=== PATIENT | female | born 1990 | race Caucasian/White ===

== ENCOUNTER 2017-05-25 07:59 | Inpatient (IN) | payer BC ==
[2017-05-25 09:57] LABS: ABS Basophils 0.1 10^3/ul (0-0.2); ABS Eosinophils 0.1 10^3/ul (0-0.6); ABS Lymphocytes 2.3 10^3/ul (1.0-4.8); ABS Monocytes 0.7 10^3/ul (0-0.8); ABS Neutrophils 7.9 10^3/ul (1.5-7.7); ABS Nucleated RBC 0 10^3/ul; Eosinophil % 0.8 % (0-6); Hematocrit 37 % (35-47); Hemoglobin 12.6 g/dl (12.0-16.0); Lymphocyte % 20.9 % (25-47); Mean Corpuscular HGB Conc 34 g/dl (31-36); Mean Corpuscular Hemoglobin 32 pg (27-31); Mean Corpuscular Volume 94 fL (80-97); Mean Platelet Volume 10 um3 (7.4-10.4); Nucleated Red Blood Cells % 0; Platelet Count 213 10^3/ul (150-450); Red Blood Count 3.99 10^6/ul (4.0-5.4); Red Cell Distribution Width 14 % (10.5-15); White Blood Count 11.1 10^3/ul (3.5-10.8)
[2017-05-25] MEDS ORDERED: Oxytocin in LR* 20 UNITS/1,000 ML BAG IVPB SCH ×2 (10:00→23:45)
[2017-05-25] MEDS ORDERED: OBEPIDURAL* 250 ML EPIDURAL ONE (16:49)
[2017-05-25] MEDS ORDERED: Sodium Citrate/Citric Acid* 15 ML UDC PO PRN (18:39)
[2017-05-25] MEDS ORDERED: EPHEDrine (Pressors)* 50 MG/ML VIAL IV PUSH PRN ×2 (18:39)
[2017-05-25] MEDS ORDERED: Phenylephrine IV* 40 MCG/ML 10 ML SYRINGE IV PUSH PRN ×2 (18:39)
[2017-05-25] MEDS ORDERED: Famotidine TAB* 20 MG PO PRN (18:39)
[2017-05-25] MEDS ORDERED: OBEPIDURAL* 250 ML EPIDURAL SCH (19:00)
[2017-05-25] MEDS ORDERED: Dibucaine 1% 28.35 GM TUBE PR PRN (23:24)
[2017-05-25] MEDS ORDERED: Witch Hazel PAD* JAR TOPICAL PRN (23:24)
[2017-05-25] MEDS ORDERED: Glycerin ADULT SUPP PR PRN (23:24)
[2017-05-26] MEDS: Docusate CAP* 100 MG PO SCH ×3 (08:09→21:09)
[2017-05-26] MEDS: Acetaminophen TAB* 325 MG PO PRN (08:09)
[2017-05-26] MEDS ORDERED: Simethicone TAB* 80 MG TAB.CHEW PO SCH (08:30)
[2017-05-26 08:32] LABS: ABS Basophils 0.1 10^3/ul (0-0.2); ABS Eosinophils 0.1 10^3/ul (0-0.6); ABS Lymphocytes 2.8 10^3/ul (1.0-4.8); ABS Monocytes 1.4 10^3/ul (0-0.8); ABS Neutrophils 12.6 10^3/ul (1.5-7.7); ABS Nucleated RBC 0 10^3/ul; Eosinophil % 0.3 % (0-6); Hematocrit 35 % (35-47); Hemoglobin 11.6 g/dl (12.0-16.0); Lymphocyte % 16.6 % (25-47); Mean Corpuscular HGB Conc 33 g/dl (31-36); Mean Corpuscular Hemoglobin 31 pg (27-31); Mean Corpuscular Volume 94 fL (80-97); Mean Platelet Volume 9 um3 (7.4-10.4); Nucleated Red Blood Cells % 0; Platelet Count 194 10^3/ul (150-450); Red Blood Count 3.71 10^6/ul (4.0-5.4); Red Cell Distribution Width 13 % (10.5-15)
[2017-05-26] MEDS ORDERED: Ferrous Gluconate TAB* 324 MG TAB PO SCH (09:00)
[2017-05-27] MEDS: Acetaminophen TAB* 325 MG PO PRN (06:12)
[2017-05-27 07:55] VITALS: BP 113/73
[2017-05-27] MEDS: Docusate CAP* 100 MG PO SCH (09:37)
== END 2017-05-27 11:24 | disposition home or self-care (01) | DRG 560 ==
LOC: MCHOBOUT 07:59 → MCHOB 09:02
PROVIDERS: ADMIT Obstetrics & Gynecology; ATTEND Obstetrics & Gynecology
PROC: 10907ZC Drainage of Amniotic Fluid, Therapeutic from Products of Conception, Via Natural or Artificial Opening (ICD-10-PCS; principal; 2017-05-25)
PROC: 4A1HX4Z Monitoring of Products of Conception, Cardiac Electrical Activity, External Approach (ICD-10-PCS; 2017-05-25)
PROC: 10D07Z6 Extraction of Products of Conception, Vacuum, Via Natural or Artificial Opening (ICD-10-PCS; 2017-05-25)
PROC: 0UQMXZZ Repair Vulva, External Approach (ICD-10-PCS; 2017-05-25)
DX: O48.0 Post-term pregnancy (principal); O69.81X0 Labor and delivery complicated by cord around neck, without compression, not applicable or unspecified; Z3A.40 40 weeks gestation of pregnancy; Z37.0 Single live birth; Z88.8 Allergy status to other drugs, medicaments and biological substances; O71.82 Other specified trauma to perineum and vulva
CPT/HCPCS: 36415; 85025; 86850; 86900; 86901; A9270-GY

== ENCOUNTER 2019-04-21 18:01 | Emergency (ER) | payer BC ==
[2019-04-21 18:42] VITALS: BP 112/59
[2019-04-21] MEDS ORDERED: Tetan/Diph/Pertus SYR(Tdap)* 0.5 ML SYR(BOOSTRIX) use SYR contains LATEX IM ONE (19:17)
--- NOTE | 2019-04-21 19:38 | UC ---
Laceration HPI - HPI Summary HPI Summary: 29 y/o female presents to the urgent care c/o cutting her Rt pinky finger w/ a glass while washing dishes about 1.5 hrs ago. Pain at touch is 4/10 and bleeding is controlled w/ pressure. She can move her pinky finger w/o any difficulty. Pt is unsure when last tetanus shot was. Pt denies fever, numbness or tingling sensation over the RT hand or pinky finger, SOB, chest pain, abdominal pain, N/V/D. or Hx of previous injury in that finger. - History Of Current Complaint Chief Complaint: JULIUSkin Stated Complaint: RT HAND-PINKY LACERATION Time Seen by Provider: 04/21/19 19:35 Hx Obtained From: Patient Hx Last Menstrual Period: 03/20/19 Laceration Location: Finger - Rt pinky laceration Mechanism Of Injury: Sharp Trauma Onset/Duration: Lasting Hours Pain Intensity: 4 Pain Scale Used: 0-10 Numeric Aggravating Factors: Movement, Other: - touch Related History: Dominant Hand Right - Allergies/Home Medications Allergies/Adverse Reactions: Allergies Allergy/AdvReac Type Severity Reaction Status Date / Time ibuprofen Allergy Intermediate Bleeding Verified 04/21/19 18:35 Home Medications: Home Medications Acetaminophen [Tylenol Extra Strength] 1,500 mg PO ONCE 04/21/19 [History Confirmed 04/21/19] PMH/Surg Hx/FS Hx/Imm Hx Previously Healthy: Yes Other GI/ History: chronz diease - Surgical History Surgical History: Yes Surgery Procedure, Year, and Place: tonsilectomy at age 7 - Family History Known Family History: Positive: Hypertension, Other - no FH eye disorders Negative: Cardiac Disease, Diabetes - Social History Occupation: Employed Full-time Lives: With Family Alcohol Use: Rare Substance Use Type: None Smoking Status (MU): Never Smoked Tobacco - Immunization History Most Recent Influenza Vaccination: never Most Recent Tetanus Shot: unk Most Recent Pneumonia Vaccination: never Review of Systems All Other Systems Reviewed And Are Negative: Yes Constitutional: Positive: Negative Skin: Positive: Other - laceration of Rt pinky finger w/ a glass Eyes: Positive: Negative ENT: Positive: Negative Respiratory: Positive: Negative Cardiovascular: Positive: Negative Gastrointestinal: Positive: Negative Genitourinary: Positive: Negative Motor: Positive: Negative Neurovascular: Positive: Negative Musculoskeletal: Positive: Other: - RT pinky finger s/p laceration Neurological: Positive: Negative Psychological: Positive: Negative Is Patient Immunocompromised?: No Physical Exam - Summary Physical Exam Summary: Vital Signs Reviewed: Yes General: well developed, well nourished female sitting in the examining table w/ o any apparent distress Eye Exam: Normal Eyes: Positive: Conjunctiva Clear - PERRLA, EOMI, fundi grossly normal ENT: Positive: Normal ENT inspection, Hearing grossly normal, Pharynx normal, TMs normal Neck: Positive: Supple, Nontender, No Lymphadenopathy Respiratory: Positive: Chest non-tender, Lungs clear, Normal breath sounds, No respiratory distress Cardiovascular: Positive: RRR, No Murmur, Pulses Normal, Brisk Capillary Refill Abdomen Description: Positive: Nontender, No Organomegaly, Soft. Negative: CVA Tenderness (R), CVA Tenderness (L) Bowel Sounds: Positive: Present Musculoskeletal: Positive: Strength Intact, ROM Intact, No Edema Neurological: Positive: Alert, Muscle Tone Normal Psychological Exam: Normal Skin: Positive:Lateral side of RT 5th finger below the DIPJ w/ semilunar linear superficial laceration about 2.0cm in size, bleeding, no foreign body observed. mild tenderness to palpation, no ecchymosis around RT pinky finger, FROM of RT hand and fingers, sensation intact, capillary refill brisk, and pulses WNL. Triage Information Reviewed: Yes Vital Signs: Initial Vital Signs Temp 98.4 F 04/21/19 18:36 Pulse 68 04/21/19 18:36 Resp 18 04/21/19 18:36 BP 112/59 04/21/19 18:36 Pulse Ox 100 04/21/19 18:36 Laceration Repair - Laceration Repair 1 Description: Irregular - irrgular triangular flap over the dorsal side pf the Rt little finger Laceration Size After Repair: Length (cm) - 2.0cm in size Modified For Repair: No Type Injection: Digital Anesthesia Used: 1.0% Lido - 2ml Cleansing Completed Via Routine Prep: Yes Irrigation With Pressure Irrigation Device: Yes Closure Material: Sutures - 7 Closure Method: Single Layer Suture Of: Skin, SQ, Mucus Membrane Suture Type: Prolene - 5.0 Laceration Course/Dx - Course/Dx Course Of Treatment: 29 y/o female presents to the urgent care c/o cutting her Rt pinky finger w/ a glass while washing dishes about 1.5 hrs ago. Pain at touch is 4/10 and bleeding is controlled w/ pressure. She can move her pinky finger w/o any difficulty. Pt is unsure when last tetanus shot was. Pt denies fever, numbness or tingling sensation over the RT hand or pinky finger, SOB, chest pain, abdominal pain, N/V/D. or Hx of previous injury in that finger. Hx obtained. Pt w/ Lateral side of RT 5th finger below the DIPJ w/ semilunar linear superficial laceration about 2.0cm in size, bleeding, no foreign body observed. mild tenderness to palpation, no ecchymosis around RT pinky finger, FROM of RT hand and fingers, sensation intact, capillary refill brisk, and pulses WNL on examination. LACERATION PROCEDURE NOTE: . Copious irrigation was done with saline by the nurse and the wound explored. There was no FB or deep structure injury noted. FROM of RT pinky finger. procedure was explained and consent obtained, Timeout performed. The wound was anesthetized by digital block with 2 mL of 1% lido with good anesthesia. Sterile drape and prep were done. There were 7 sutures with 5.0 nylon type of suture. The length of the wound after closure was 2.0cm. No debridement done. Pt tolerated the procedure well without adverse effects. Neurovascular intact and FROM. Tdap ordered and applied by nurse. Pt advised to f/u suture removal in 10-12 days and if any signs of infection develop to immediately return to the urgent care of PCP for further management and treatment. Pt understood and agreed and left the clinic ambulating A&Ox3. - Differential Dx - Laceration/Wound Differental Diagnoses: Avulsion, Laceration, Puncture Wound, Tendon Laceration - Diagnosis Provider Diagnosis: Laceration of right little finger Discharge ED - Sign-Out/Discharge Documenting (check all that apply): Patient Departure - D/C home All imaging exams completed and their final reports reviewed: No Studies - Discharge Plan Condition: Stable Disposition: HOME Prescriptions: Bacitracin OINTMENT* 1 applic TOPICAL BID #1 tube Patient Education Materials: Care For Your Stitches (ED), Laceration (ED) Referrals: [facility] [place] [facility] REFERRAL [Outside] - 1 Week Additional Instructions: 1-Please apply Bacitracin oint topical antibiotic over the wound. Keep wound clean and dry 2- F/u suture removal in 10-12 days w/ your PCP or here at the urgent care. 3-Take Ibuprofen or Tylenol PO q6-8hrs prn for pain or swelling. 4- If you develop fever or redness around your finger despite the antibiotic please go to the ER immediately or return to the Urgent care. - Billing Disposition and Condition Condition: STABLE Disposition: Home
[2019-04-21] MEDS ORDERED: Lidocaine 1% MPF ** 5 ML VIAL INJ ONE (19:43)
== END 2019-04-21 20:47 | disposition home or self-care (01) ==
LOC: UCCORT 18:01
DX: S61.216A Laceration without foreign body of right little finger without damage to nail, initial encounter (principal); K50.90 Crohn's disease, unspecified, without complications; Z23 Encounter for immunization; Z88.6 Allergy status to analgesic agent; W25.XXXA Contact with sharp glass, initial encounter; Y93.G3 Activity, cooking and baking; Y92.9 Unspecified place or not applicable
CPT/HCPCS: 12001; 90471; 90715; 99212; G0463

== ENCOUNTER 2019-05-03 16:46 | Emergency (ER) | payer BC ==
--- NOTE | 2019-05-03 17:26 | UC ---
HPI Wound/Suture Re-check - HPI Summary HPI Summary: 29 yo for removal of sutures placed 04/21/19 in fifth digit of the left hand. Wound has healed well, with increasing pain for the past 2 days. Sutures removed with mild erythema consistent with repair, no drainage from wound. Works as a dental hygienist. - History Of Current Complaint Stated Complaint: SUTURE REMOVAL Time Seen by Provider: 05/03/19 17:16 Hx Obtained From: Patient Hx Last Menstrual Period: 03/20/19 Onset/Duration: Sudden Onset Severity: Worse Since: - 2 days of increased pain - Allergies/Home Medications Allergies/Adverse Reactions: Allergies Allergy/AdvReac Type Severity Reaction Status Date / Time ibuprofen Allergy Intermediate Bleeding Verified 05/03/19 17:23 PMH/Surg Hx/FS Hx/Imm Hx Previously Healthy: Yes - Surgical History Surgical History: Yes Surgery Procedure, Year, and Place: tonsilectomy at age 7 - Family History Known Family History: Positive: None - parents alive and healthy, half sibs healthy, Hypertension, Other - no FH eye disorders Negative: Cardiac Disease, Diabetes - Social History Occupation: Employed Full-time - dental hygienist Alcohol Use: Rare Substance Use Type: None Smoking Status (MU): Never Smoked Tobacco - Immunization History Most Recent Influenza Vaccination: never Most Recent Tetanus Shot: unk Most Recent Pneumonia Vaccination: never Review of Systems All Other Systems Reviewed And Are Negative: Yes Constitutional: Positive: Negative Skin: Positive: Other - increased soreness at wound site Eyes: Positive: Negative ENT: Positive: Negative Respiratory: Positive: Negative Cardiovascular: Positive: Negative Genitourinary: Positive: Negative Is Patient Immunocompromised?: No Physical Exam Triage Information Reviewed: Yes Appearance: Well-Appearing, Pain Distress - mild Respiratory Exam: Normal Cardiovascular Exam: Normal Skin Exam: Other - well healed laceration over dorsal surface of proximal phalanx of the left hand. 7 sutures removed. Mild erythema at margins of wound without swelling or drainage. Course/Dx - Course Course Of Treatment: sutures removed, continue topical antibiotic - Differential Dx - Laceration/Wound Differential Diagnoses: Other - laceration - Diagnosis Provider Diagnosis: Encounter for removal of sutures Discharge ED - Sign-Out/Discharge Documenting (check all that apply): Patient Departure All imaging exams completed and their final reports reviewed: No Studies - Discharge Plan Condition: Stable Disposition: HOME Patient Education Materials: Stitches Removal (ED) Referrals: No Primary Care Phys,NOPCP [Primary Care Provider] - Additional Instructions: Sutures were removed today, and the wound does not appear infected. Continue topical antibiotic to the wound 2 or 3 times per day for several days and monitor for increasing redness or pain. - Billing Disposition and Condition Condition: STABLE Disposition: Home
[2019-05-03 17:27] VITALS: BP 119/77
== END 2019-05-03 17:36 | disposition home or self-care (01) ==
LOC: UCCORT 16:46
DX: S61.217D Laceration without foreign body of left little finger without damage to nail, subsequent encounter (principal); Z88.6 Allergy status to analgesic agent; X58.XXXD Exposure to other specified factors, subsequent encounter

== ENCOUNTER 2019-06-04 13:31 | Emergency (ER) | payer BC ==
[2019-06-04 13:54] VITALS: BP 121/68
--- NOTE | 2019-06-04 14:36 | UC ---
Respiratory Complaint HPI - HPI Summary HPI Summary: 29-year-old female who had cold symptoms approximately 3 weeks ago which have continued however she has had a residual cough and postnasal drainage. She states occasionally she'll you will blow her nose and she'll have yellow coryza. She denies any shortness of breath. Nonsmoker. She denies any fever or chills. - History of Current Complaint Chief Complaint: UCRespiratory Stated Complaint: COUGH Time Seen by Provider: 06/04/19 13:50 Hx Obtained From: Patient Hx Last Menstrual Period: 03/20/19 ?: No Onset/Duration: Gradual Onset, Lasting Weeks Timing: Intermittent Episodes Severity Initially: Mild Severity Currently: Mild Pain Intensity: 0 Character: Cough: Productive - Occasionally productive of yellow sputum but she thinks it may be postnasal drainage. Aggravating Factors: Nothing Alleviating Factors: Nothing Associated Signs And Symptoms: Positive: Nasal Congestion, Sinus Discomfort - States occasionally she'll have a sinus headache. - Allergies/Home Medications Allergies/Adverse Reactions: Allergies Allergy/AdvReac Type Severity Reaction Status Date / Time ibuprofen Allergy Intermediate Bleeding Verified 06/04/19 13:54 Home Medications: Home Medications Ibuprofen 600 mg PO ONCE 06/04/19 [History Confirmed 06/04/19] PMH/Surg Hx/FS Hx/Imm Hx Previously Healthy: Yes - Surgical History Surgical History: Yes Surgery Procedure, Year, and Place: tonsilectomy at age 7 - Family History Known Family History: Positive: None - parents alive and healthy, half sibs healthy, Hypertension, Other - no FH eye disorders Negative: Cardiac Disease, Diabetes - Social History Alcohol Use: Rare Substance Use Type: None Smoking Status (MU): Never Smoked Tobacco - Immunization History Most Recent Influenza Vaccination: never Most Recent Tetanus Shot: unk Most Recent Pneumonia Vaccination: never Review of Systems All Other Systems Reviewed And Are Negative: Yes ENT: Positive: Nasal Discharge, Sinus Congestion Respiratory: Positive: Cough - Occasionally productive cough of yellow sputum which may be postnasal drainage. Neurological: Positive: Headache - Patient states occasionally she'll have intermittent sinus headaches. Physical Exam Triage Information Reviewed: Yes Appearance: Well-Appearing, No Pain Distress, Well-Nourished Vital Signs: Initial Vital Signs Temp 98.3 F 06/04/19 13:52 Pulse 64 06/04/19 13:52 Resp 18 01/20/20 13:52 BP 121/68 06/04/19 13:52 Pulse Ox 100 06/04/19 13:52 Vital Signs Reviewed: Yes Eyes: Positive: Conjunctiva Clear ENT: Positive: Pharynx normal - Yellow postnasal drainage, Nasal congestion, Nasal drainage - Yellow purulent nasal coryza right nostril with inflamed membranes. Left nostril is clear and pink., TMs normal, Uvula midline. Negative: Sinus tenderness Neck: Positive: Supple, Nontender, No Lymphadenopathy Respiratory: Positive: Lungs clear, Normal breath sounds, No respiratory distress, No accessory muscle use Cardiovascular: Positive: RRR, No Murmur, Pulses Normal, Brisk Capillary Refill Musculoskeletal Exam: Normal Neurological Exam: Normal Psychological Exam: Normal Skin Exam: Normal Respiratory Course/Dx - Course Course Of Treatment: Chest x-ray:REPORT: Clear lungs and pleural spaces. Negative for pneumothorax. The heart, pulmonary vasculature, and mediastinal contours are unremarkable. Unremarkable osseous structures and soft tissue contours. IMPRESSION: #. No acute pulmonary or cardiac process evident. The patient is comfortable here. I am going to treat her for sinus infection with amoxicillin. She is to follow-up with her primary care provider if no improvement in 5-7 days or go to the ER if she has any worsening symptoms or shortness of breath. She denies any pain on deep inspiration. - Differential Dx/Diagnosis Provider Diagnosis: Sinusitis Discharge ED - Sign-Out/Discharge Documenting (check all that apply): Patient Departure All imaging exams completed and their final reports reviewed: Yes - Discharge Plan Condition: Good Disposition: HOME Prescriptions: Amoxicillin PO (*) [Amoxicillin 875 MG (*)] 875 mg PO BID 10 Days #20 tab Patient Education Materials: Sinusitis (ED) Referrals: No Primary Care Phys,NOPCP [Primary Care Provider] - [facility] [Outside] Additional Instructions: Increase fluids, follow-up with your primary care provider or [facility] if no improvement in 5-7 days. The emergency room if you have any worsening symptoms or difficulty breathing. - Billing Disposition and Condition Condition: GOOD Disposition: Home
== END 2019-06-04 14:50 | disposition home or self-care (01) ==
LOC: UCCORT 13:31
DX: J32.9 Chronic sinusitis, unspecified (principal); R05 Cough; Z88.8 Allergy status to other drugs, medicaments and biological substances
CPT/HCPCS: 71046; 99212; G0463